=== PATIENT | female | born 1975 | race Caucasian/White ===

== ENCOUNTER 2018-11-17 18:33 | Emergency (ER) | payer SELFPAY, OTHER | END 2018-11-17 19:30 | disposition home or self-care (01) | LOC: E/R 18:33 | DX: S09.90XA Unspecified injury of head, initial encounter (principal); S13.4XXA Sprain of ligaments of cervical spine, initial encounter; R51 Headache; V49.49XA Driver injured in collision with other motor vehicles in traffic accident, initial encounter | CPT/HCPCS: 70450; 72125; 81025; 99284-25 ==